=== PATIENT | female | born 1940 | race African-American/Black ===

== ENCOUNTER → 2019-04-23 | Outpatient (CLI) | payer MEDICARE ==
[~2019-04-23] MED LIST: CATHETER FLUSH 10 ML SYR IV PRN; HOLD METFORMIN - RECEIVED CONTRAST 20 ML VIAL IV SCH; IOHEXOL 350 MG/ML 100 ML (OMNIPAQUE 350) VIAL IV ONE; NS 100 ML (IVPB) BAG IV ONE
[2019-04-23 10:59] LABS: BUN/CREATININE RATIO 18; CREATININE SERUM 0.97 MG/DL (0.60-1.30); GFR ESTIMATED > 60
--- NOTE | 2019-04-23 13:13 | Diagnostic Imaging Report ---
CLINICAL INDICATION: Patient felt a lump behind her right ear last week. Patient had mastoid mass removed in 1961. EXAM: Axial CT scan of the neck performed with 75 mL of Omnipaque 350 IV contrast. Sagittal and coronal reformatted images are created. Auto Exposure Controls were utilized during the CT exam to meet ALARA standards for radiation dose reduction. COMPARISON: None. FINDINGS: There is a 2.1 cm x 2.7 cm x 2.3 cm (AP x Trans x CC) heterogeneous avidly-enhancing circumscribed mass predominately in the superficial portion of the right parotid gland which has small amount of extension near the deep portion of the left parotid gland. There is a 8 mm x 6 mm x 8 mm (AP x Trans x CC) avidly-enhancing circumscribed mass in the superficial portion of left parotid gland which is near the deep portion. There is a smaller area of enhancement seen posterior to this region which may represent another mass or vascular structure. There is a 5 mm x 7 mm x 5 mm (AP x Trans x CC) avidly-enhancing circumscribed mass in the tail of the left parotid gland. The submandibular gland is more prominent in the right side and demonstrates slight increase in enhancement. Mild sialadenitis may be considered. There is no stones or measurable mass seen. There is no lymphadenopathy involving the neck. The nasopharynx, oropharynx, hypopharynx, laryngeal soft tissue structures are unremarkable. There is goitrous enlargement of the thyroid gland with the more inferior aspect of left thyroid gland was not completely imaged and unknown if it is below level of the manubrium or not. There are multiple heterogeneous low-density masses/nodules seen throughout both thyroid glands. One of the larger lesions that is completely visualized measures 2.3 cm x 2.6 cm x 2.6 cm (AP x Trans x CC) and is in the inferior right thyroid gland region. Visualized upper lung schreiber are clear. Visualized intracranial structures are unremarkable. Orbits and globes are unremarkable. Paranasal sinuses are unremarkable. Wall down right mastoidectomy changes are noted. There are degenerative spurs seen throughout the cervical spine. IMPRESSION: 1: There are three heterogeneously avidly enhancing circumscribed masses within the bilateral parotid glands. There is one in the right parotid gland and at least two in the left parotid gland. The largest mass measures 2.7 cm in greatest dimension in the right parotid gland region. These masses may represent multiple pleomorphic adenomas. Warthin's tumors may be considered, but these masses are not significantly cystic. ENT consultation is suggested for further evaluation. 2: Goitrous enlargement of the thyroid gland with multiple nodules and masses seen. The inferior aspect of left thyroid gland is not completely imaged and unknown if it extends below the sternum. Ultrasound of the thyroid gland would help better evaluate. CT scan of the chest with contrast would also better evaluate for complete extent of the left thyroid gland region. 3: Slight enlargement and mild enhancement of the left submandibular gland. Mild sialadenitis may be considered. Clinical correlation for symptoms would help better evaluate. Dictated by: Dictated on workstation # [id number]
== END ==
LOC: RAD FS 10:03
PROVIDERS: ATTEND Otolaryngology Otolaryngology/Facial Plastic Surgery
DX: K11.8 Other diseases of salivary glands (principal); E04.2 Nontoxic multinodular goiter; Z98.890 Other specified postprocedural states
CPT/HCPCS: 36415; 70491; 82565; 84520

== ENCOUNTER → 2019-07-31 | Outpatient (CLI) | payer MEDICARE ==
[2019-07-31 08:50] LABS: BUN/CREATININE RATIO 19; CREATININE SERUM 0.99 MG/DL (0.60-1.30); GFR ESTIMATED > 60
--- NOTE | 2019-07-31 09:39 | Diagnostic Imaging Report ---
PROCEDURE: CT neck soft tissue with contrast. TECHNIQUE: Multiple contiguous axial images were obtained through the neck after the administration of contrast. Auto Exposure Controls were utilized during the CT exam to meet ALARA standards for radiation dose reduction. INDICATION: Right parotid mass. Exam compared 04/23/2019 FINDINGS: Hyperenhancing mass involves the deep and superficial lobes of the right parotid gland measuring 2.8 x 2.1 cm unchanged from prior. There are 2 smaller hyperenhancing nodules in the left parotid lobe. A deep nodule superiorly measures a diameter of 7 mm and a nodule in the superficial lower pole measured 5.5 mm. These are unchanged from the comparison study. These lesions showed no identifiable calcification or substantial cystic component. Parotid spaces were otherwise unremarkable. The submandibular is unremarkable. No cervical lymphadenopathy. Markedly enlarged heterogeneous multinodular thyroid showed no substantial change from prior without suspicious thyroidal calcifications. No evidence for extra thyroidal extension of the stable thyroid masses. Nasopharynx, oropharynx and hypopharynx unremarkable. The prevertebral space unremarkable. Supraclavicular fossa and pulmonary apices unremarkable. IMPRESSION: 1. Stable bilateral hyperenhancing intraparenchymal parotid masses with no adenopathy, fluid collection or new lesion. 2. Multinodular presumptively goitrous thyroid also unchanged. Dictated by: Dictated on workstation # [id number]
== END ==
LOC: RAD FS 07:56
PROVIDERS: ATTEND Otolaryngology Otolaryngology/Facial Plastic Surgery
DX: K11.8 Other diseases of salivary glands (principal); E04.2 Nontoxic multinodular goiter
CPT/HCPCS: 36415; 70491; 82565; 84520

== ENCOUNTER → 2019-10-27 | Outpatient (CLI) | payer MEDICARE ==
[2019-10-27 10:13] LABS: CARBON DIOXIDE 29 MMOL/L (21-32); CHLORIDE 101 MMOL/L (98-107); POTASSIUM 4.6 MMOL/L (3.6-5.0); SODIUM 139 MMOL/L (135-145)
[2019-10-27 10:14] LABS: ALANINE AMINOTRANSFERASE 15 U/L (0-55); ALBUMIN 3.9 GM/DL (3.2-4.5); ALKALINE PHOSPHATASE 92 U/L (40-136); BILIRUBIN,TOTAL 0.4 MG/DL (0.1-1.0); BUN/CREATININE RATIO 18; CALCIUM 9.6 MG/DL (8.5-10.1); CREATININE SERUM 1.05 MG/DL (0.60-1.30); GFR ESTIMATED > 60; GLUCOSE 107 MG/DL (70-105); TOTAL PROTEIN 7.4 GM/DL (6.4-8.2)
[2019-10-27 15:01] LABS: CHOLESTEROL 175 MG/DL (< 200); HDL CHOLESTEROL 51 MG/DL (40-60); TRIGLYCERIDES 84 MG/DL (<150); VLDL CHOLESTEROL 17 MG/DL (5-40)
== END ==
LOC: LAB FS 08:17
PROVIDERS: ATTEND Family Medicine
DX: E78.5 Hyperlipidemia, unspecified (principal)
CPT/HCPCS: 36415; 80053; 80061

== ENCOUNTER → 2020-04-27 | Outpatient (CLI) | payer MEDICARE, OTHER ==
[2020-04-27 09:05] LABS: CREATININE SERUM 1.11 MG/DL (0.60-1.30); POTASSIUM 4.2 MMOL/L (3.6-5.0)
[2020-04-27 09:06] LABS: ALBUMIN 3.9 GM/DL (3.2-4.5); BILIRUBIN,TOTAL 0.3 MG/DL (0.1-1.0); CALCIUM 9.1 MG/DL (8.5-10.1); TOTAL PROTEIN 6.8 GM/DL (6.4-8.2)
== END ==
LOC: LAB FS 08:18
PROVIDERS: ATTEND Family Medicine
DX: E78.5 Hyperlipidemia, unspecified (principal)
CPT/HCPCS: 36415; 80053; 80061

== ENCOUNTER → 2020-09-07 | Outpatient (CLI) | payer MEDICARE, OTHER ==
[2020-09-07 09:49] LABS: CREATININE SERUM 1.11 MG/DL (0.60-1.30)
--- NOTE | 2020-09-07 11:43 | Diagnostic Imaging Report ---
CLINICAL INDICATION: Patient with bilateral parotid masses. Right side has increased in size. No history of treatment. EXAM: Axial CT scanning of the neck soft tissues performed with 75 cc of Omnipaque 350 IV contrast. Sagittal and coronal reformatted images were created. Auto Exposure Controls were utilized during the CT exam to meet ALARA standards for radiation dose reduction. COMPARISON: Axial CT scan of the neck soft tissues dated 07/31/2019. FINDINGS: There is multinodular goitrous enlargement of the thyroid gland. The right side measures 3.2 cm in greatest dimension which previously measured 2.8 cm in greatest dimension. The largest gross lesion in the left thyroid gland measures roughly 3.5 cm compared to the prior study measured at 2.6 cm. These lesions demonstrate heterogeneous enhancement. The thyroid goiter is just above the level of the manubrium. There are bilateral salivary gland masses seen. The one in the right parotid gland is superficial and deep extending through the stylomandibular tunnel region. This lesion measures 2.5 cm x 3.6 cm x 2.8 cm cm (AP x Trans x CC). There are two in the left parotid gland region with one superficial and partially obscured by dental streak artifact. The superficial one measures 13 mm in greatest axial dimension compared to the prior study remeasured at 7 mm. The 2nd lesion in the superficial/deep region of the left salivary gland measures 12 mm x 12 mm in greatest axial dimension compared to the prior study remeasured at 7 mm x 7 mm. These bilateral parotid gland lesions demonstrate slightly heterogeneous but avid enhancement. There are no significant low-density changes in the region. The nasopharynx, oropharynx, hypopharynx, and laryngeal soft tissue structures are unremarkable. There is no lymphadenopathy. There is a 4 mm nodule in the periphery of the right upper lobe. The visualized upper lung schreiber are otherwise clear. IMPRESSION: 1: There is interval increased size of the bilateral parotid gland masses, as described above. Considerations may include multiple pleomorphic adenomas. Multiple Warthin's tumors also cannot be completely excluded. 2: There is interval enlargement of the multinodular goitrous thyroid gland and interval increased size of the multiple thyroid nodules. The largest nodule measures 3.2 cm in the right thyroid lobe. The inferior border of the thyroid gland is just above the level of the manubrium. ENT consultation is suggested. 3: There is no neck lymphadenopathy. 4: There is a partially visualized 4 mm nodule in the periphery of the right lung field which was not imaged on the prior study. Dictated by: Dictated on workstation # [id number]
== END ==
LOC: RAD FS 09:06
PROVIDERS: ATTEND Otolaryngology Otolaryngology/Facial Plastic Surgery
DX: K11.8 Other diseases of salivary glands (principal); R91.1 Solitary pulmonary nodule
CPT/HCPCS: 36415; 70491; 82565; 84520

== ENCOUNTER → 2020-10-18 | Outpatient (CLI) | payer MEDICARE, OTHER ==
[2020-10-18 11:14] LABS: POTASSIUM 3.8 MMOL/L (3.6-5.0)
[2020-10-18 11:15] LABS: ALBUMIN 3.7 GM/DL (3.2-4.5); BILIRUBIN,TOTAL 0.4 MG/DL (0.1-1.0); CALCIUM 9.2 MG/DL (8.5-10.1); CREATININE SERUM 1.08 MG/DL (0.60-1.30)
== END ==
LOC: LAB FS 08:43
PROVIDERS: ATTEND Family Medicine
DX: I10 Essential (primary) hypertension (principal)
CPT/HCPCS: 36415; 80053; 80061

== ENCOUNTER → 2020-11-01 | Outpatient (CLI) | payer MEDICARE, OTHER ==
[~2020-11-01] VITALS: Ht 154.9 cm; Wt 82.7 kg
[~2020-11-01] MED LIST changes: -CATHETER FLUSH 10 ML SYR IV PRN; -HOLD METFORMIN - RECEIVED CONTRAST 20 ML VIAL IV SCH; -IOHEXOL 350 MG/ML 100 ML (OMNIPAQUE 350) VIAL IV ONE; +LIDOCAINE 1% INJ 20 ML 20 ML VIAL INJ ONE; -NS 100 ML (IVPB) BAG IV ONE
--- NOTE | 2020-11-01 12:44 | Diagnostic Imaging Report ---
INDICATION: Left thyroid mass. Patient presents for ultrasound-guided fine-needle aspiration and biopsy. Patient brought to the procedure room and placed on the bed in the supine position. Ultrasound imaging of left neck was performed to evaluate appropriate entry site. Left neck was then prepped and draped in usual sterile fashion. Small amount of 1% lidocaine was utilized for local anesthesia. A total of 4 passes were made into the dominant solid and cystic mass left lobe of thyroid utilizing 25-gauge needles and fine-needle aspiration technique. A single pass was made with a Rotex needle and Rotex biopsy was performed. Hemostasis was obtained using manual compression. Patient tolerated procedure well. IMPRESSION: Successful left thyroid mass fine needle aspiration and Rotex biopsy, as described. Dictated by: Dictated on workstation # [id number]
--- NOTE | 2020-11-01 12:45 | Diagnostic Imaging Report ---
INDICATION: Right thyroid mass. Patient presents for fine-needle aspiration and biopsy. Patient brought to the procedure and placed on the table in the supine position. Ultrasound imaging of the right neck was performed to evaluate appropriate entry site. The right neck was then prepped and draped in usual sterile fashion. Small amount of 1% lidocaine was utilized for local anesthesia. A total of 4 passes were made into the solid mass right lobe of thyroid utilizing 25-gauge needles and fine-needle aspiration technique. A single pass was made with a Rotex needle and Rotex biopsy was performed. Hemostasis was obtained. Patient tolerated the procedure well. IMPRESSION: Successful ultrasound guided fine needle aspiration and Rotex biopsy of dominant solid right lobe thyroid mass. Pathology results are currently pending. Dictated by: Dictated on workstation # [id number]
--- NOTE | 2020-11-01 12:48 | Diagnostic Imaging Report ---
INDICATION: Right parotid mass. Patient brought to the procedure room and placed on table in the left side down decubitus position. Imaging over the right parotid gland was performed to evaluate appropriate entry site. The right neck was then prepped and draped in usual sterile fashion. Small amount of 1% lidocaine was utilized for local anesthesia. A total of 3 passes were made into the solid mass in the right thyroid gland utilizing a 20-gauge Temno needle. 8 core biopsies were obtained. Needle was removed and hemostasis was obtained using manual compression. Patient tolerated procedure well left the department in stable condition. IMPRESSION: Successful ultrasound-guided core biopsy of the solid mass right parotid gland. Pathology results are currently pending. Dictated by: Dictated on workstation # [id number]
== END ==
LOC: RAD 10:12
PROVIDERS: ATTEND Otolaryngology Otolaryngology/Facial Plastic Surgery
DX: K11.8 Other diseases of salivary glands (principal); E04.2 Nontoxic multinodular goiter
CPT/HCPCS: 10005; 76942; 88173; 88305; 88341; 88342

== ENCOUNTER 2020-11-03 06:50 | Emergency (ER) | payer MEDICARE, OTHER ==
[2020-11-03 06:58] VITALS: BP 164/88
--- NOTE | 2020-11-03 07:42 | ED Cough/URI ---
General Chief Complaint: Cough/Cold/Flu Symptoms Stated Complaint: COUGH Nursing Triage Note: cough x 2 days. Has had both covid vaccines. Temp 99.2 Sepsis Screen: Possible Sepsis Risk Source: patient Exam Limitations: no limitations History of Present Illness Date Seen by Provider: November 03, 2020 Time Seen by Provider: 07:25 Initial Comments Here with report of cough for the last 2 days. She states that she was out in the weather this weekend. She also recently had thyroid and parotid gland biopsies 2 days ago in [place] that was ultrasound-guided. She denies fevers. She has had her Covid vaccination as well as influenza vaccination. Denies GI symptoms. Cough is mild. She does note some nasal congestion and complains of head cold or head fullness. She has been using daytime cold medicine products that she states is helping just a little. She was a little concerned secondary to the biopsies and wanted to make sure that things were okay related to that. Timing/Duration: other (2 days) Severity/Quality: mild, dry cough Prior Episodes/Possible Cause: occasional episodes Associated Symptoms: cough, nasal congestion, sore throat Allergies and Home Medications Allergies Coded Allergies: No Known Drug Allergies (Unverified , 09/07/20) Patient Home Medication List Home Medication List Reviewed: Yes Review of Systems Review of Systems Constitutional: see HPI; No chills, No fever EENTM: nose congestion, throat pain Respiratory: cough; No short of breath Cardiovascular: no symptoms reported Gastrointestinal: no symptoms reported Past Hxfjfyf-Izivrm-Ayabpx Hx Past Med/Social Hx: Reviewed Nursing Past Med/Soc Hx Patient Social History Alcohol Use: Denies Use Smoking Status: Former Smoker 2nd Hand Smoke Exposure: No Recent Infectious Disease Expo: No Recent Hopitalizations: No Seasonal Allergies Seasonal Allergies: No Past Medical History Surgeries: Yes (thyroid biopsy ) Respiratory: No Cardiac: Yes High Cholesterol, Hypertension Neurological: No Genitourinary: No Gastrointestinal: No Musculoskeletal: No Endocrine: No HEENT: No Cancer: No Psychosocial: No Integumentary: No Blood Disorders: No Adverse Reaction/Blood Tranf: No Family Medical History Reviewed Nursing Family Hx Physical Exam Vital Signs - First Documented 11/03/20 06:58 Temp 37.3 Pulse 102 Resp 18 B/P (MAP) 164/88 (113) Pulse Ox 95 Capillary Refill : Less Than 3 Seconds Height: '" Weight: lbs. oz. kg; 34.46 BMI Method: General Appearance: WD/WN, no apparent distress HEENT: PERRL/EOMI, TMs normal, pharyngeal erythema (Mild), other (Mild bilateral nasal congestion with clear rhinorrhea and moderate erythema) Neck: thyromegaly, other (Parotid gland fullness right greater than left) Respiratory: lungs clear, normal breath sounds Cardiovascular: regular rate, rhythm, systolic murmur Neurologic/Psychiatric: alert, oriented x 3 Skin: normal color, warm/dry Progress/Results/Core Measures Suspected Sepsis Recent Fever Within 48 Hours: Yes Infection Criteria Present: Suspected New Infection New/Unexplained Altered Menta: No Sepsis Screen: Possible Sepsis Risk SIRS Temperature: Pulse: 102 Respiratory Rate: 18 Blood Pressure 164 /88 Mean: 113 Results/Orders My Orders Orders - TAMMI RUSSO MD Dexamethasone Injection (Decadron Inje (11/03/20 07:45) Vital Signs/I&O 11/03/20 06:58 Temp 37.3 Pulse 102 Resp 18 B/P (MAP) 164/88 (113) Pulse Ox 95 Capillary Refill : Less Than 3 Seconds Blood Pressure Mean: 113 Progress Note : Progress Note Seen and evaluated. I did review recent history which showed essentially normal labs and early October for chemistry panel and she did have ultrasound-guided biopsy as described above. Pathology is still pending. We will go ahead and do dose of Decadron 10 mg IM now to help decrease the symptoms and this may also help decrease any fullness associated with her other condition. She will initiate [id number] medications as well. Patient is afebrile here and no concerns for Covid. Discharged home with return precautions. Patient verbalized understanding of instructions and agreement with plan. Departure Impression Primary Impression: Upper respiratory infection Qualified Codes: J06.9 - Acute upper respiratory infection, unspecified Disposition: 01 HOME, SELF-CARE Condition: Stable Departure-Patient Inst. Decision time for Depature: 07:42 Referrals: NHUNG PINEDA MD (PCP/Family) Primary Care Physician Patient Instructions: Viral Upper Respiratory Infection, Adult (DC) Add. Discharge Instructions: All discharge instructions reviewed with patient and/or family. Voiced understanding. You may take Tylenol/acetaminophen 1000 mg every 8 hours as needed for fever or pain. You may use Afrin nasal spray or the generic, 12 hour relief, 2 sprays to each nostril twice daily for 3 days only and then stop. Do not use more than 3 days. Follow-up with your Dr. in a few days for recheck. Drink plenty of fluids. Return for worse pain, fever, vomiting, weakness, breathing problems or other concerns as needed. TAMMI RUSSO MD November 03, 2020 07:42
== END 2020-11-03 07:49 | disposition home or self-care (01) ==
LOC: EDUNIT# 06:50 → ER FS 06:53
DX: J06.9 Acute upper respiratory infection, unspecified (principal); I10 Essential (primary) hypertension; Z87.891 Personal history of nicotine dependence
CPT/HCPCS: 99284

== ENCOUNTER → 2021-04-28 | Outpatient (CLI) | payer MEDICARE, OTHER ==
[2021-04-28 15:03] LABS: TRIGLYCERIDES 77 MG/DL (<150); VLDL CHOLESTEROL 15 MG/DL (5-40)
[2021-04-28 15:09] LABS: CHOLESTEROL 213 MG/DL (< 200); HDL CHOLESTEROL 52 MG/DL (40-60)
== END ==
LOC: LAB FS 08:07
PROVIDERS: ATTEND Family Medicine
DX: I10 Essential (primary) hypertension (principal)
CPT/HCPCS: 36415; 80061

== ENCOUNTER → 2021-05-30 | Outpatient (CLI) | payer MEDICARE, OTHER ==
[2021-05-30 09:40] LABS: ALBUMIN 3.6 GM/DL (3.2-4.5); BILIRUBIN,TOTAL 0.4 MG/DL (0.1-1.0); CALCIUM 9.3 MG/DL (8.5-10.1); CREATININE SERUM 0.91 MG/DL (0.60-1.30)
[2021-05-30 09:44] LABS: BASOPHILS % (AUTO) 2 % (0-10); EOSINOPHILS % (AUTO) 3 % (0-10); HEMATOCRIT 43 % (35-52); HEMOGLOBIN 13.6 g/dL (11.5-16.0); LYMPHOCYTES % (AUTO) 35 % (12-44); MEAN CORPUSCULAR HEMOGLOBIN 27 pg (25-34); MEAN CORPUSCULAR HGB CONC 32 g/dL (32-36); MEAN CORPUSCULAR VOLUME 86 fL (80-99); MEAN PLATELET VOLUME 10.3 fL (9.0-12.2); MONOCYTES % (AUTO) 8 % (0-12); NEUTROPHILS % (AUTO) 54 % (42-75); PLATELET COUNT 193 10^3/uL (130-400); WHITE BLOOD COUNT 4.4 10^3/uL (4.3-11.0)
[2021-05-30 09:45] LABS: BASOPHILS # (AUTO) 0.1 10^3/uL (0.0-0.1); EOSINOPHILS # (AUTO) 0.1 10^3/uL (0.0-0.3); LYMPHOCYTES # (AUTO) 1.5 X 10^3 (1.0-4.0); MONOCYTES # (AUTO) 0.3 X 10^3 (0.0-1.0); NEUTROPHILS # (AUTO) 2.4 X 10^3 (1.8-7.8)
== END ==
LOC: LAB FS 07:44
PROVIDERS: ATTEND Internal Medicine Hospice and Palliative Medicine
DX: C64.1 Malignant neoplasm of right kidney, except renal pelvis (principal); R53.83 Other fatigue
CPT/HCPCS: 36415; 80053; 85025

== ENCOUNTER → 2021-07-08 | Outpatient (CLI) | payer MEDICARE, OTHER ==
[2021-07-08 09:47] LABS: HEMATOCRIT 40 % (35-52); HEMOGLOBIN 12.8 g/dL (11.5-16.0); MEAN CORPUSCULAR HEMOGLOBIN 28 pg (25-34); MEAN CORPUSCULAR HGB CONC 32 g/dL (32-36); MEAN CORPUSCULAR VOLUME 90 fL (80-99); MEAN PLATELET VOLUME 9.7 fL (9.0-12.2); NEUTROPHILS % (AUTO) 51 % (42-75); PLATELET COUNT 206 10^3/uL (130-400)
[2021-07-08 09:48] LABS: BASOPHILS # (AUTO) 0.1 10^3/uL (0.0-0.1); BASOPHILS % (AUTO) 2 % (0-10); EOSINOPHILS # (AUTO) 0.2 10^3/uL (0.0-0.3); EOSINOPHILS % (AUTO) 5 % (0-10); LYMPHOCYTES # (AUTO) 1.1 X 10^3 (1.0-4.0); LYMPHOCYTES % (AUTO) 28 % (12-44); MONOCYTES # (AUTO) 0.6 X 10^3 (0.0-1.0); MONOCYTES % (AUTO) 14 % (0-12); NEUTROPHILS # (AUTO) 2.1 X 10^3 (1.8-7.8)
[2021-07-08 10:26] LABS: CREATININE SERUM 0.97 MG/DL (0.60-1.30)
[2021-07-08 10:27] LABS: ALBUMIN 3.8 GM/DL (3.2-4.5); BILIRUBIN,TOTAL 0.4 MG/DL (0.1-1.0); CALCIUM 9.1 MG/DL (8.5-10.1); TOTAL PROTEIN 7.5 GM/DL (6.4-8.2)
== END ==
LOC: LAB FS 08:47
PROVIDERS: ATTEND Physician Assistant
DX: C64.1 Malignant neoplasm of right kidney, except renal pelvis (principal)
CPT/HCPCS: 36415; 80053; 85025

== ENCOUNTER → 2021-08-22 | Outpatient (CLI) | payer MEDICARE, OTHER ==
[2021-08-22 08:58] LABS: BASOPHILS # (AUTO) 0.1 10^3/uL (0.0-0.1); BASOPHILS % (AUTO) 2 % (0-10); EOSINOPHILS # (AUTO) 0.1 10^3/uL (0.0-0.3); EOSINOPHILS % (AUTO) 2 % (0-10); HEMATOCRIT 39 % (35-52); HEMOGLOBIN 12.8 g/dL (11.5-16.0); LYMPHOCYTES # (AUTO) 1.3 10^3/uL (1.0-4.0); LYMPHOCYTES % (AUTO) 39 % (12-44); MEAN CORPUSCULAR HEMOGLOBIN 29 pg (25-34); MEAN CORPUSCULAR HGB CONC 33 g/dL (32-36); MEAN CORPUSCULAR VOLUME 89 fL (80-99); MEAN PLATELET VOLUME 9.4 fL (9.0-12.2); MONOCYTES # (AUTO) 0.2 10^3/uL (0.0-1.0); MONOCYTES % (AUTO) 7 % (0-12); NEUTROPHILS # (AUTO) 1.6 10^3/uL (1.8-7.8); NEUTROPHILS % (AUTO) 49 % (42-75); PLATELET COUNT 255 10^3/uL (130-400); WHITE BLOOD COUNT 3.3 10^3/uL (4.3-11.0)
== END ==
LOC: LAB FS 08:45
PROVIDERS: ATTEND Internal Medicine Hospice and Palliative Medicine
DX: C64.1 Malignant neoplasm of right kidney, except renal pelvis (principal)
CPT/HCPCS: 36415; 85025

== ENCOUNTER → 2021-08-31 | Outpatient (CLI) | payer MEDICARE ==
[2021-08-31 09:19] LABS: BASOPHILS # (AUTO) 0.1 10^3/uL (0.0-0.1); BASOPHILS % (AUTO) 2 % (0-10); EOSINOPHILS # (AUTO) 0.1 10^3/uL (0.0-0.3); EOSINOPHILS % (AUTO) 2 % (0-10); HEMATOCRIT 38 % (35-52); HEMOGLOBIN 12.2 g/dL (11.5-16.0); LYMPHOCYTES # (AUTO) 1.4 10^3/uL (1.0-4.0); LYMPHOCYTES % (AUTO) 37 % (12-44); MEAN CORPUSCULAR HEMOGLOBIN 29 pg (25-34); MEAN CORPUSCULAR HGB CONC 32 g/dL (32-36); MEAN CORPUSCULAR VOLUME 90 fL (80-99); MEAN PLATELET VOLUME 9.9 fL (9.0-12.2); MONOCYTES # (AUTO) 0.3 10^3/uL (0.0-1.0); MONOCYTES % (AUTO) 9 % (0-12); NEUTROPHILS % (AUTO) 51 % (42-75); PLATELET COUNT 184 10^3/uL (130-400); WHITE BLOOD COUNT 3.9 10^3/uL (4.3-11.0)
[2021-08-31 10:13] LABS: BILIRUBIN,TOTAL 0.4 MG/DL (0.1-1.0); CALCIUM 9.2 MG/DL (8.5-10.1); CREATININE SERUM 0.88 MG/DL (0.60-1.30); POTASSIUM 3.4 MMOL/L (3.6-5.0); TOTAL PROTEIN 7.5 GM/DL (6.4-8.2)
[2021-08-31 10:14] LABS: ALBUMIN 3.9 GM/DL (3.2-4.5)
== END ==
LOC: LAB FS 08:57
PROVIDERS: ATTEND Internal Medicine Hospice and Palliative Medicine
DX: C64.1 Malignant neoplasm of right kidney, except renal pelvis (principal)
CPT/HCPCS: 36415; 80053; 85025

== ENCOUNTER → 2021-09-21 | Outpatient (CLI) | payer MEDICARE ==
[2021-09-21 09:01] LABS: BASOPHILS # (AUTO) 0.1 10^3/uL (0.0-0.1); BASOPHILS % (AUTO) 2 % (0-10); EOSINOPHILS # (AUTO) 0.1 10^3/uL (0.0-0.3); EOSINOPHILS % (AUTO) 2 % (0-10); HEMATOCRIT 37 % (35-52); LYMPHOCYTES # (AUTO) 1.6 10^3/uL (1.0-4.0); LYMPHOCYTES % (AUTO) 42 % (12-44); MEAN CORPUSCULAR HEMOGLOBIN 30 pg (25-34); MEAN CORPUSCULAR HGB CONC 33 g/dL (32-36); MEAN CORPUSCULAR VOLUME 90 fL (80-99); MEAN PLATELET VOLUME 10.1 fL (9.0-12.2); MONOCYTES # (AUTO) 0.3 10^3/uL (0.0-1.0); MONOCYTES % (AUTO) 8 % (0-12); NEUTROPHILS # (AUTO) 1.7 10^3/uL (1.8-7.8); NEUTROPHILS % (AUTO) 46 % (42-75); PLATELET COUNT 214 10^3/uL (130-400); WHITE BLOOD COUNT 3.8 10^3/uL (4.3-11.0)
[2021-09-21 09:23] LABS: POTASSIUM 3.6 MMOL/L (3.6-5.0)
[2021-09-21 09:24] LABS: BILIRUBIN,TOTAL 0.2 MG/DL (0.1-1.0); CREATININE SERUM 0.98 MG/DL (0.60-1.30); TOTAL PROTEIN 7.3 GM/DL (6.4-8.2)
== END ==
LOC: LAB FS 08:22
PROVIDERS: ATTEND Internal Medicine Hospice and Palliative Medicine
DX: C64.1 Malignant neoplasm of right kidney, except renal pelvis (principal)
CPT/HCPCS: 36415; 80053; 85025

== ENCOUNTER → 2022-03-03 | Outpatient (CLI) | payer MEDICARE ==
[2022-03-03 09:50] LABS: BASOPHILS # (AUTO) 0.1 10^3/uL (0.0-0.1); BASOPHILS % (AUTO) 2 % (0-10); EOSINOPHILS # (AUTO) 0.1 10^3/uL (0.0-0.3); EOSINOPHILS % (AUTO) 2 % (0-10); HEMATOCRIT 44 % (35-52); LYMPHOCYTES # (AUTO) 1.6 10^3/uL (1.0-4.0); LYMPHOCYTES % (AUTO) 38 % (12-44); MEAN CORPUSCULAR HEMOGLOBIN 27 pg (25-34); MEAN CORPUSCULAR HGB CONC 32 g/dL (32-36); MEAN CORPUSCULAR VOLUME 84 fL (80-99); MEAN PLATELET VOLUME 10.6 fL (9.0-12.2); MONOCYTES # (AUTO) 0.3 10^3/uL (0.0-1.0); MONOCYTES % (AUTO) 8 % (0-12); NEUTROPHILS % (AUTO) 50 % (42-75); PLATELET COUNT 222 10^3/uL (130-400); WHITE BLOOD COUNT 4.1 10^3/uL (4.3-11.0)
[2022-03-03 10:52] LABS: CREATININE SERUM 1.03 MG/DL (0.60-1.30)
[2022-03-03 10:53] LABS: BILIRUBIN,TOTAL 0.3 MG/DL (0.1-1.0); CALCIUM 9.5 MG/DL (8.5-10.1); TOTAL PROTEIN 7.7 GM/DL (6.4-8.2)
== END ==
LOC: LAB FS 09:36
PROVIDERS: ATTEND Internal Medicine Hospice and Palliative Medicine
DX: C64.1 Malignant neoplasm of right kidney, except renal pelvis (principal)
CPT/HCPCS: 36415; 80053; 85025

== ENCOUNTER → 2022-04-27 | Outpatient (CLI) | payer MEDICARE ==
--- NOTE | 2022-04-27 13:44 | Diagnostic Imaging Report ---
Indication: Cough. FINDINGS: PA and lateral chest. The lungs are well-aerated and clear. Heart is upper limits of normal. There is no pulmonary edema. No pneumothorax or pleural effusion. No bony abnormalities. IMPRESSION: Heart upper limits of normal in size. No findings to suggest pneumonia or congestive failure. Dictated by: Dictated on workstation # [id number]
== END ==
LOC: RAD FS 08:03
PROVIDERS: ATTEND Registered Nurse Emergency
DX: R05.9 Cough, unspecified (principal)
CPT/HCPCS: 71046

== ENCOUNTER → 2022-04-28 | Outpatient (CLI) | payer MEDICARE ==
[2022-04-28 11:31] LABS: BASOPHILS # (AUTO) 0.1 10^3/uL (0.0-0.1); BASOPHILS % (AUTO) 2 % (0-10); EOSINOPHILS # (AUTO) 0.1 10^3/uL (0.0-0.3); EOSINOPHILS % (AUTO) 3 % (0-10); HEMATOCRIT 45 % (35-52); HEMOGLOBIN 14.5 g/dL (11.5-16.0); LYMPHOCYTES # (AUTO) 1.4 10^3/uL (1.0-4.0); LYMPHOCYTES % (AUTO) 32 % (12-44); MEAN CORPUSCULAR HEMOGLOBIN 27 pg (25-34); MEAN CORPUSCULAR HGB CONC 32 g/dL (32-36); MEAN CORPUSCULAR VOLUME 83 fL (80-99); MEAN PLATELET VOLUME 10.2 fL (9.0-12.2); MONOCYTES # (AUTO) 0.5 10^3/uL (0.0-1.0); MONOCYTES % (AUTO) 11 % (0-12); NEUTROPHILS # (AUTO) 2.2 10^3/uL (1.8-7.8); NEUTROPHILS % (AUTO) 53 % (42-75); PLATELET COUNT 255 10^3/uL (130-400); WHITE BLOOD COUNT 4.3 10^3/uL (4.3-11.0)
[2022-04-28 12:31] LABS: BILIRUBIN,TOTAL 0.3 MG/DL (0.1-1.0); CALCIUM 9.3 MG/DL (8.5-10.1); CREATININE SERUM 0.97 MG/DL (0.60-1.30); POTASSIUM 3.6 MMOL/L (3.6-5.0)
[2022-04-28 12:32] LABS: ALBUMIN 3.9 GM/DL (3.2-4.5); TOTAL PROTEIN 7.7 GM/DL (6.4-8.2)
== END ==
LOC: LAB FS 10:47
PROVIDERS: ATTEND Internal Medicine Hospice and Palliative Medicine
DX: C64.1 Malignant neoplasm of right kidney, except renal pelvis (principal)
CPT/HCPCS: 36415; 80053; 85025

== ENCOUNTER 2022-05-25 08:43 | Outpatient (RCR) | payer MEDICARE ==
[2022-05-25 09:11] LABS: BASOPHILS % (AUTO) 2 % (0-10); HEMATOCRIT 45 % (35-52); HEMOGLOBIN 14.6 g/dL (11.5-16.0); LYMPHOCYTES % (AUTO) 33 % (12-44); MEAN CORPUSCULAR HEMOGLOBIN 27 pg (25-34); MEAN CORPUSCULAR HGB CONC 32 g/dL (32-36); MEAN CORPUSCULAR VOLUME 83 fL (80-99); MEAN PLATELET VOLUME 10.3 fL (9.0-12.2); MONOCYTES % (AUTO) 10 % (0-12); NEUTROPHILS % (AUTO) 53 % (42-75); PLATELET COUNT 235 10^3/uL (130-400); WHITE BLOOD COUNT 4.1 10^3/uL (4.3-11.0)
[2022-05-25 09:12] LABS: BASOPHILS # (AUTO) 0.1 10^3/uL (0.0-0.1); EOSINOPHILS # (AUTO) 0.1 10^3/uL (0.0-0.3); EOSINOPHILS % (AUTO) 2 % (0-10); LYMPHOCYTES # (AUTO) 1.4 X 10^3 (1.0-4.0); MONOCYTES # (AUTO) 0.4 X 10^3 (0.0-1.0); NEUTROPHILS # (AUTO) 2.2 X 10^3 (1.8-7.8)
[2022-05-25 10:03] LABS: BILIRUBIN,TOTAL 0.5 MG/DL (0.1-1.0); CALCIUM 9.6 MG/DL (8.5-10.1); CREATININE SERUM 0.96 MG/DL (0.60-1.30); TOTAL PROTEIN 7.7 GM/DL (6.4-8.2)
[2022-05-25 10:04] LABS: ALBUMIN 3.9 GM/DL (3.2-4.5)
== END 2022-06-17 | disposition home or self-care (01) ==
LOC: LAB FS 08:43
PROVIDERS: ATTEND Internal Medicine Hospice and Palliative Medicine
DX: C64.1 Malignant neoplasm of right kidney, except renal pelvis (principal)
CPT/HCPCS: 36415; 80053; 85025

== ENCOUNTER → 2022-09-06 | Outpatient (CLI) | payer MEDICARE ==
[2022-09-06 09:11] LABS: BASOPHILS # (AUTO) 0.1 10^3/uL (0.0-0.1); BASOPHILS % (AUTO) 2 % (0-10); EOSINOPHILS # (AUTO) 0.2 10^3/uL (0.0-0.3); EOSINOPHILS % (AUTO) 3 % (0-10); HEMATOCRIT 36 % (35-52); HEMOGLOBIN 11.6 g/dL (11.5-16.0); LYMPHOCYTES # (AUTO) 1.4 10^3/uL (1.0-4.0); LYMPHOCYTES % (AUTO) 28 % (12-44); MEAN CORPUSCULAR HEMOGLOBIN 27 pg (25-34); MEAN CORPUSCULAR HGB CONC 32 g/dL (32-36); MEAN CORPUSCULAR VOLUME 84 fL (80-99); MONOCYTES # (AUTO) 0.6 10^3/uL (0.0-1.0); MONOCYTES % (AUTO) 11 % (0-12); NEUTROPHILS # (AUTO) 2.7 10^3/uL (1.8-7.8); NEUTROPHILS % (AUTO) 56 % (42-75); PLATELET COUNT 209 10^3/uL (130-400); WHITE BLOOD COUNT 4.8 10^3/uL (4.3-11.0)
[2022-09-06 09:39] LABS: ALBUMIN 3.9 GM/DL (3.2-4.5); BILIRUBIN,TOTAL 0.2 MG/DL (0.1-1.0); CALCIUM 9.5 MG/DL (8.5-10.1); CREATININE SERUM 1.04 MG/DL (0.60-1.30); POTASSIUM 4.1 MMOL/L (3.6-5.0); TOTAL PROTEIN 7.6 GM/DL (6.4-8.2)
== END ==
LOC: LAB FS 08:49
PROVIDERS: ATTEND Physician Assistant
DX: C64.1 Malignant neoplasm of right kidney, except renal pelvis (principal)
CPT/HCPCS: 36415; 80053; 85025